=== PATIENT | male | born 1990 | race Caucasian/White ===

== ENCOUNTER 2018-12-06 11:43 | Day surgery (SDC) | payer MEDICAID ==
[~2018-12-06] VITALS: Ht 154.9 cm; Wt 68.2 kg
[~2018-12-06 11:43] MED LIST: SODIUM CHLORIDE 0.9% 1,000 ML IV ONE
[2018-12-06] MEDS ORDERED: KETAMINE HCL 50 MG/ML 10 ML VIAL IVP ONE (11:44)
[2018-12-06] MEDS ORDERED: PROPOFOL 1% 20 ML VIAL IVP ONE (11:44)
[2018-12-06] MEDS ORDERED: SODIUM CHLORIDE 0.9% 1,000 ML IV ONE (12:06)
[2018-12-06] MEDS ORDERED: MIDAZOLAM HCL 5 MG/ML VIAL ONE (12:50)
[2018-12-06] MEDS ORDERED: RISP1 PO (13:00)
[2018-12-06] MEDS ORDERED: GABA-529 PO (13:00)
[2018-12-06] MEDS ORDERED: LANS15CA17 PO (13:00)
[2018-12-06] MEDS ORDERED: [UNRECOGNIZED DRUG - OTHER] PO (13:00)
[2018-12-06] MEDS ORDERED: LEVO100 PO (13:00)
== END 2018-12-06 16:10 | disposition home or self-care (01) ==
LOC: SURGERY 11:43
PROVIDERS: ATTEND Student in an Organized Health Care Education/Training Program
DX: K29.50 Unspecified chronic gastritis without bleeding (principal); K44.9 Diaphragmatic hernia without obstruction or gangrene; K20.0 Eosinophilic esophagitis; E03.9 Hypothyroidism, unspecified; Q90.9 Down syndrome, unspecified; K90.0 Celiac disease; Z88.2 Allergy status to sulfonamides; Z79.899 Other long term (current) drug therapy; Z98.890 Other specified postprocedural states
CPT/HCPCS: 43239; 88305; 88312; 88313; C1769; J2250; J2704; J3490; J7030